=== PATIENT | female | born 1980 | race Caucasian/White ===

== ENCOUNTER 2017-03-24 10:55 | Outpatient (CLI) | payer OTHER ==
--- NOTE | 2017-03-25 16:21 | CT Report ---
DATE OF SERVICE: 03/24/2017 CT ABDOMEN AND PELVIS WITHOUT CONTRAST: 03/24/2017 CLINICAL INDICATION: Left flank pain. TECHNIQUE: Axial CT images of the abdomen and pelvis were obtained without oral or intravenous contr ast, according to renal stone protocol. COMPARISON: No previous CT is available for comparison. In accordance with CT protocol optimization, one or more of the following dose reduction techniques w ere utilized for this exam: Automated exposure control, adjustment of mA and/or KV based on patient size , or use of iterative reconstructive technique. FINDINGS Limited evaluation of the lung bases is unremarkable. ABDOMEN: The kidneys are unremarkable, with no evidence of hydronephrosis or nephrolithiasis. The l iver, spleen, pancreas, and adrenal glands are unremarkable. The gallbladder is contracted. No bowel dila tation, free gas, or free fluid is present. No abdominal adenopathy is seen. PELVIS: The appendix is seen in the right lower quadrant, and is normal in caliber. The pelvic orga ns are unremarkable. No adenopathy or free fluid is present. Osseous structures are unremarkable. IMPRESSION: No evidence of nephrolithiasis or hydronephrosis. No evident etiology for left flank pa in. TD: 03/24/2017 18:17
== END 2017-03-24 10:56 | disposition home or self-care (01) ==
LOC: DI 10:55
PROVIDERS: ATTEND Physician Assistant Medical
DX: R10.9 Unspecified abdominal pain (principal)
CPT/HCPCS: 74176